=== PATIENT | male | born 1995 | race American Indian/Alaskan Native ===

== ENCOUNTER 2021-08-12 06:31 | Emergency (ER) | payer SELFPAY ==
[2021-08-12] MEDS ORDERED: LIDOCAINE-MPF (1%) 10 MG/1 ML VIAL 5 ML INFILTRATI ONE (06:56)
--- NOTE | 2021-08-12 07:03 | Emergency Department Report ---
HPI - General Chief Complaint: Urogenital-Male Time Seen by Provider: 08/12/21 06:45 - HPI HPI: 26-year-old -[place] Citizen male presents to the emergency department with a 3- day history of burning with urination and some discharge from the penis. Mango travis says that he is sexually active with 2 different partners, but only uses protection with 1. He says that he went and had a negative rapid HIV test 2 days ago. He denies any past medical history, including any history of previous STDs. He denies any rash or lesions to the scrotum or penis. He has not taken anything for symptoms prior to presentation today. ED Past Medical Hx - Past Medical History Previous Medical History?: No - Surgical History Past Surgical History?: No - Medications Home Medications: Home Medications Medication Instructions Recorded Confirmed Last Taken Type DOXYCYCLINE Hyclate [Vibramycin 100 mg PO Q12HR #14 capsule 08/12/21 Unknown Rx CAP] ED Review of Systems ROS: Stated complaint: BURINING URIANATION Other details as noted in HPI Comment: All other systems reviewed and negative Constitutional: denies: chills, fever Gastrointestinal: denies: abdominal pain, vomiting Genitourinary: dysuria, discharge. denies: testicular pain Musculoskeletal: denies: back pain, arthralgia Skin: denies: rash, lesions Physical Exam - Physical Exam Vital Signs: Vital Signs 08/12/21 06:38 Temperature 97.9 F Pulse Rate 68 Respiratory 18 Rate Blood Pressure 117/73 [Right] O2 Sat by Pulse 100 Oximetry Physical Exam: GENERAL: The patient is well-developed well-nourished. HENT: Normocephalic. Atraumatic. Patient has moist mucous membranes. EYES: Extraocular motions are intact. NECK: Supple. Trachea is midline. CHEST/LUNGS: Clear to auscultation. There is no respiratory distress noted. HEART/CARDIOVASCULAR: Regular. There is no tachycardia. There is no murmur. ABDOMEN: Abdomen is soft, nontender. Patient has normal bowel sounds. SKIN: Skin is warm and dry. NEURO: The patient is awake, alert, and oriented. The patient is cooperative. Normal speech. MUSCULOSKELETAL: There is no tenderness or deformity. There is no limitation range of motion. : Deferred/refused. ED Course Vital Signs 08/12/21 06:38 Temperature 97.9 F Pulse Rate 68 Respiratory 18 Rate Blood Pressure 117/73 [Right] O2 Sat by Pulse 100 Oximetry ED Medical Decision Making - Lab Data Lab Results 08/12/21 Range/Units 06:54 Urine Color Yellow (Yellow) Urine Turbidity Slightly-cloudy (Clear) Urine pH 7.0 (5.0-7.0) Ur Specific [place] 1.017 (1.003-1.030) Urine Protein <15 mg/dl (Negative) mg/dL Urine Glucose (UA) Neg (Negative) mg/dL Urine Ketones Neg (Negative) mg/dL Urine Blood Neg (Negative) Urine Nitrite Neg (Negative) Urine Bilirubin Neg (Negative) Urine Urobilinogen 2.0 (<2.0) mg/dL Ur Leukocyte Esterase Mod (Negative) Urine WBC (Auto) < 1.0 (0.0-6.0) /HPF Urine RBC (Auto) 84.0 (0.0-6.0) /HPF Urine Bacteria (Auto) 1+ (Negative) /HPF - Medical Decision Making This patient presents with a few days of penile discharge and some dysuria. His examination is benign but the patient did defer/refuse examination. Vital signs reassuring including being afebrile. Overall this appears consistent with urethritis. He was given an IM injection of Rocephin, and a prescription for doxycycline, as per the CDC's new recommendations for empiric urethritis treatment. Urinalysis shows hematuria without UTI. He was given outpatient referrals for primary care and the [facility]. Critical Care Time: No Critical care attestation.: If time is entered above; I have spent that time in minutes in the direct care of this critically ill patient, excluding procedure time. ED Disposition Clinical Impression: Urethritis, Hematuria Disposition: HOME / SELF CARE / HOMELESS Is pt being admited?: No Condition: Stable Instructions: Urethritis, Adult Additional Instructions: Please follow-up with a primary care physician in the next few days. I have given you a referral for a local primary care physician, Dr. Valentine, and a primary care clinic, [facility]. I have also given you a referral for the [facility] to follow-up for any other possible STD examination/testing. Take the antibiotics as prescribed. It is recommended that you take this with food and do not mix with any alcohol. Please avoid any sexual intercourse/contact for at least 7 days after finishing the antibiotics. Return to the emergency department with any worsening of your symptoms, new or concerning symptoms not addressed during this current emergency department visit, or with any acute distress. Prescriptions: DOXYCYCLINE Hyclate [Vibramycin CAP] 100 mg PO Q12HR #14 capsule Referrals: OLIVER VALENTINE MD [Staff Physician] - 3-5 Days [facility] [Outside] - 3-5 Days [facility] [Provider Group] - 3-5 Days Forms: STI Treatment and Prevention Time of Disposition: 07:28
[2021-08-12 07:20] LABS: Bacteria,Urine 1+ /HPF (Negative); Bilirubin,Urine NEG (Negative); Blood,Urine NEG (Negative); Color,Urine Yellow (Yellow); Protein,Urine <15 mg/dL mg/dL (Negative)
[2021-08-12 07:40] LABS: WBC,Urine < 1.0 /HPF (0.0-6.0)
[2021-08-12 07:49] VITALS: BP 120/72
== END 2021-08-12 07:49 | disposition home or self-care (01) ==
LOC: ED 06:31
DX: N34.2 Other urethritis (principal); R31.9 Hematuria, unspecified
CPT/HCPCS: 81001; 96372; 99283; J0696; J3490